=== PATIENT | male | born 1960 | race Caucasian/White ===

== ENCOUNTER 2017-03-21 13:56 | Emergency (ER) | payer OTHER ==
--- NOTE | 2017-03-21 15:38 | UC ---
Skin Complaint HPI - HPI Summary HPI Summary: 57 y/o male present to the [facility] c/o tick bite on his left upper arm since yesterday at 1000 am. He removed the tick and now he has just redness around tick bite. Pt has had Hx of tick bites in the past w/o any prophylactic treatment. Pt removed tick yesterday afternoon. Pt denies fever, body aches , SOB, chest pain, N/V/D, abdominal pain. - History of Current Complaint Time Seen by Provider: 03/21/17 15:21 Stated Complaint: TICK BITE Hx Obtained From: Patient Onset/Duration: Sudden Onset, Lasting Days - 1 day, Still Present Skin Exposure Onset/Duration: Days Ago - 1 day ago Timing: Constant Onset Severity: Mild Current Severity: Mild Pain Intensity: 0 Pain Scale Used: 0-10 Numeric Location: Discrete - Left upper arm tick bite Character: Redness Aggravating Factor(s): Touch Alleviating Factor(s): Nothing Associated Signs & Symptoms: Positive: Rash - redness around tick bite. Negative: Nausea, Vomiting, Difficulty Breathing, Fever, Chills, Tenderness Related History: Possible Reaction to: Insect - Allergy/Home Medications Allergies/Adverse Reactions: Allergies Allergy/AdvReac Type Severity Reaction Status Date / Time No Known Allergies Allergy Verified 03/21/17 15:42 Home Medications: Home Medications metFORMIN* [Glucophage 500 MG TAB *] 500 mg PO DAILY 03/21/17 [History Confirmed 03/21/17] Review of Systems Constitutional: Negative Skin: Rash - left upper arm with a tick bite Eyes: Negative ENT: Negative Respiratory: Negative Cardiovascular: Negative Genitourinary: Negative Motor: Negative Neurovascular: Negative Musculoskeletal: Negative Neurological: Negative Psychological: Negative Is Patient Immunocompromised?: No All Other Systems Reviewed And Are Negative: Yes PMH/Surg Hx/FS Hx/Imm Hx Previously Healthy: Yes Endocrine History: Diabetes, Dyslipidemia - diet control - Surgical History Surgery Procedure, Year, and Place: none on chest - Family History Known Family History: Positive: Hypertension, Diabetes - Social History Occupation: Employed Full-time Lives: With Family Physical Exam Triage Information Reviewed: Yes - Additional Comments Vital Signs Reviewed: Yes General: Well developed, well nourished male w/o any apparent distress, sitting comfortably on the examining table Eyes: Positive: Conjunctiva Clear - PERRLA, EOMI ENT: Positive: Normal ENT inspection, Hearing grossly normal, Pharynx normal, TMs normal Neck: Positive: Supple, Nontender, No Lymphadenopathy Respiratory: Positive: Chest nontender, Lungs clear, Normal breath sounds Cardiovascular: Positive: RRR, No Murmur, Pulses Normal Abdomen Description: Positive: Nontender, No Organomegaly, Soft. Negative: CVA Tenderness (R), CVA Tenderness (L) Bowel Sounds: Positive: Present Musculoskeletal: Positive: Strength Intact, ROM Intact, No Edema Neurological Exam: Normal Psychological Exam: Normal Skin: Positive: rashes - Proximal medial aspect of Left upper arm with tick bite with surrounding erythema, non tender to palpation. tick no longer present , no swelling or drainage observed. Course/Dx - Course Course Of Treatment: 57 y/o male present to the [facility] c/o tick bite on his left upper arm since yesterday at 1000 am. He removed the tick and now he has just redness around tick bite. Pt has had Hx of tick bites in the past w/o any prophylactic treatment. Pt removed tick yesterday afternoon. Pt denies fever, body aches , SOB, chest pain, N/V/D, abdominal pain.Hx obtained. Pt requested full treatment of antibiotic. Pt Rx Doxycycline PO . Advised that there is to possibility the serology returns negative the first 2 weeks of exposure. Strongly advised to f/u with his PCP for serology work up. Dr Alicea referral in case needed. Pt understood and agreed with plan of care. Pt left clinic ambulating. - Differential Diagnoses - Skin Complaint Differential Diagnoses: Cellulitis, Contact Dermatitis, Local Allergic Reaction , Tick Born Illness, Tinea, Urticaria, Other - bed bugs, insect bite - Diagnoses Provider Diagnoses: 1- Left upper arm tick bite Discharge - Discharge Plan Condition: Stable Disposition: HOME Prescriptions: Bacitracin OINTMENT* 1 applic TOPICAL TID #1 tube DOXYcycline CAP(*) [DOXYcycline 100MG CAP(*)] 100 mg PO BID #28 cap Patient Education Materials: Tick Bite (ED) Referrals: Flor HERNANDEZ,Bruce Stone [Primary Care Provider] - 2 Weeks Deanne DEMPSEY,Simon Cazares [Medical Doctor] - If Needed Additional Instructions: 1- Please take full course of antibiotic to avoid resistance. 2- F/u with your PCP in 2 weeks for Lyme Serology since there is a chance the serology returns negative the first 2 weeks of exposure 3-Apply bacitracin Ointment on affected areas as directed
[2017-03-21 15:49] VITALS: BP 122/72
== END 2017-03-21 16:04 | disposition home or self-care (01) ==
LOC: UCCORT 13:56
DX: S40.862A Insect bite (nonvenomous) of left upper arm, initial encounter (principal); W57.XXXA Bitten or stung by nonvenomous insect and other nonvenomous arthropods, initial encounter; Y93.9 Activity, unspecified; Y92.9 Unspecified place or not applicable; Y99.9 Unspecified external cause status; E11.9 Type 2 diabetes mellitus without complications; E78.5 Hyperlipidemia, unspecified
CPT/HCPCS: 99212; G0463